=== PATIENT | male | born 1955 | race Caucasian/White ===

== ENCOUNTER 2017-03-01 20:46 | Observation (INO) | payer OTHER ==
[2017-03-01 21:31] VITALS: RESP 18; O2SAT 98
--- NOTE | 2017-03-01 21:52 | C.PDOC ---
History Of Present Illness 61 year old male BIBA for public alcohol intoxication. Patient admits to drinking today; has no physical complaints. Time Seen by Provider: 03/01/17 21:31 Chief Complaint (Nursing): Medical Clearance History Per: Patient, EMS History/Exam Limitations: intoxication Onset/Duration Of Symptoms: Hrs Current Symptoms Are (Timing): Still Present Severity: Mild Past Medical History Reviewed: Historical Data, Nursing Documentation, Vital Signs Vital Signs: Last Vital Signs Temp 97.9 F 03/02/17 06:12 Pulse 67 03/02/17 06:12 Resp 18 03/02/17 06:12 BP 95/64 L 03/02/17 06:12 Pulse Ox 98 03/02/17 06:12 Family History: States: Unknown Family Hx - Social History Hx Alcohol Use: Yes Hx Substance Use: No Review Of Systems Except As Marked, All Systems Reviewed And Found Negative. Constitutional: Positive for: Other (+Intoxication) Cardiovascular: Negative for: Chest Pain Respiratory: Negative for: Shortness of Breath Gastrointestinal: Negative for: Nausea, Vomiting, Abdominal Pain, Diarrhea Psych: Negative for: Depression, Suicidal ideation Physical Exam - Physical Exam Appears: Non-toxic, No Acute Distress, Other (+AOB, appears intoxicated ) Skin: Normal Color, Warm, Dry Head: Atraumatic, Normacephalic Eye(s): bilateral: Normal Inspection Oral Mucosa: Moist Neck: Normal, Normal ROM, No Midline Cervical Tenderness, No Paracervical Tenderness, No Step Off Deformity, Supple Cardiovascular: Rhythm Regular Respiratory: Normal Breath Sounds, No Rales, No Rhonchi, No Wheezing Gastrointestinal/Abdominal: Normal Exam, Bowel Sounds, Soft, No Tenderness Extremity: Normal ROM, No Tenderness Neurological/Psych: Other (awake, alert, intoxicated) ED Course And Treatment O2 Sat by Pulse Oximetry: 98 (Room air) Pulse Ox Interpretation: Normal Progress Note: Accucheck ordered and reviewed. Patient placed in ED observation pending sobriety. 6:15AM -Patient currently AAOx3, ambulating normally in the ED. He is clinically sober at this time, will discharge. Reevaluation Time: 02:15 Reassessment Condition: Improved (Patient resting comfortably, easily arousable , pending sobriety.) Disposition Counseled Patient/Family Regarding: Diagnosis, Need For Followup - Disposition Disposition: HOME/ ROUTINE Disposition Time: 06:15 Condition: STABLE - POA Present On Arrival: None - Clinical Impression Clinical Impression: Alcohol intoxication - Scribe Statement The provider has reviewed the documentation as recorded by the Scribe Zulema Kidd Provider Attestation: All medical record entries made by the Scribe were at my direction and personally dictated by me. I have reviewed the chart and agree that the record accurately reflects my personal performance of the history, physical exam, medical decision making, and the department course for this patient. I have also personally directed, reviewed, and agree with the discharge instructions and disposition.
[2017-03-02 06:13] VITALS: BP 95/64; PULSE 67; TEMP 97.9
== END 2017-03-02 06:12 | disposition home or self-care (01) ==
LOC: C.ER 20:46 → MERGE 22:01 → C.9OBSV 22:01
PROVIDERS: ADMIT Emergency Medicine; ATTEND Emergency Medicine
DX: F10.120 Alcohol abuse with intoxication, uncomplicated (principal); Y90.9 Presence of alcohol in blood, level not specified
CPT/HCPCS: 82948; 99282; G0378

== ENCOUNTER 2017-04-06 17:37 | Observation (INO) | payer OTHER ==
--- NOTE | 2017-04-06 17:51 | C.PDOC ---
History Of Present Illness <Manuel Goldstein - Last Filed: 04/07/17 05:17> <Isael Vincent - Last Filed: 04/07/17 12:20> 62 y/o male presents to ED via EMS after police responded to patient harassing someone outside just prior to arrival. EMS were called for public intoxication. Denies any injury, trauma, or other acute complaints on arrival. (Isael Vincent) <Manuel Goldstein - Last Filed: 04/07/17 05:17> History Per: Patient History/Exam Limitations: no limitations Onset/Duration Of Symptoms: Hrs Current Symptoms Are (Timing): Still Present Recent travel outside of the [place]: No <Isael Vincent - Last Filed: 04/07/17 12:20> Time Seen by Provider: 04/06/17 17:39 Past Medical History Reviewed: Historical Data, Nursing Documentation, Vital Signs - Medical History PMH: No Chronic Diseases Family History: States: Unknown Family Hx <Isael Vincent - Last Filed: 04/07/17 12:20> Vital Signs: Last Vital Signs Temp 97.8 F 04/07/17 05:50 Pulse 93 H 04/07/17 05:50 Resp 20 04/07/17 05:50 BP 128/69 04/07/17 05:50 Pulse Ox 98 04/07/17 05:50 Review Of Systems Except As Marked, All Systems Reviewed And Found Negative. Constitutional: Negative for: Fever Cardiovascular: Negative for: Chest Pain Respiratory: Negative for: Shortness of Breath Gastrointestinal: Negative for: Nausea, Vomiting Musculoskeletal: Negative for: Neck Pain Skin: Negative for: Rash Neurological: Negative for: Headache, Dizziness <Isael Vincent - Last Filed: 04/07/17 12:20> Physical Exam - Physical Exam Appears: Unkempt, Other (smells of alcohol ) Skin: Warm, Dry Head: Atraumatic Nose: No Epistaxis Lips: No Swelling Neck: Normal ROM Cardiovascular: Rhythm Regular Respiratory: No Accessory Muscle Use, No Rales, No Rhonchi, No Wheezing Gastrointestinal/Abdominal: Soft, No Tenderness Extremity: No Deformity Neurological/Psych: Oriented x3, Other (no focal deficits) <Isael Vincent - Last Filed: 04/07/17 12:20> ED Course And Treatment O2 Sat by Pulse Oximetry: 97 Pulse Ox Interpretation: Normal Reevaluation Time: 05:18 Reassessment Condition: Improved <Manuel Goldstein - Last Filed: 04/07/17 05:17> ED OBSERVATION Discharge: Yes <Manuel Goldstein - Last Filed: 04/07/17 05:17> Date of observation admission: 04/06/17 Time of observation admission: 17:52 <Isael Vincent - Last Filed: 04/07/17 12:20> - Observation admission statement Patient is being placed in observation because:: etoh intoxication (Isael Vincent) - Goals of Observation Goals of observation are:: sobriety (Isael Vincent) Disposition Counseled Patient/Family Regarding: Studies Performed, Diagnosis - Disposition Disposition Time: 01:00 <Manuel Goldstein - Last Filed: 04/07/17 05:17> <Isael Vincent - Last Filed: 04/07/17 12:20> - Disposition Disposition: HOME/ ROUTINE Condition: FAIR - Clinical Impression Clinical Impression: Alcohol intoxication <Manuel Goldstein - Last Filed: 04/07/17 05:17> - Scribe Statement The provider has reviewed the documentation as recorded by the Scribe <Isael Vincent - Last Filed: 04/07/17 12:20> - Scribe Statement Musa Vivas Provider Scribe Attestation: All medical record entries made by the Scribe were at my direction and personally dictated by me. I have reviewed the chart and agree that the record accurately reflects my personal performance of the history, physical exam, medical decision making, and the department course for this patient. I have also personally directed, reviewed, and agree with the discharge instructions and disposition. (Isael Vincent) Physician Patient Turnover Patient Signed Over To: Manuel Goldstein Handoff Comments: pending sobriety <Isael Vincent - Last Filed: 04/07/17 12:20>
[2017-04-07 05:51] VITALS: BP 128/69; PULSE 93; RESP 20; TEMP 97.8; O2SAT 98
== END 2017-04-07 05:18 | disposition home or self-care (01) ==
LOC: C.ER 17:37 → MERGE 18:15 → C.9OBSV 18:15 → EDBD 18:15
PROVIDERS: ADMIT Emergency Medicine; ATTEND Emergency Medicine
DX: F10.129 Alcohol abuse with intoxication, unspecified (principal)
CPT/HCPCS: 82948; 99285; G0378

== ENCOUNTER 2017-07-17 18:01 | Observation (INO) | payer OTHER ==
--- NOTE | 2017-07-17 18:43 | C.PDOC ---
History Of Present Illness 61 y/o male who was brought by EMS after being found lying on street. Patient is intoxicated. States having no complaints, and wants to leave. Appears to have no physical injuries. Time Seen by Provider: 07/17/17 18:24 Chief Complaint (Nursing): Substance Abuse History Per: Patient History/Exam Limitations: no limitations Onset/Duration Of Symptoms: Days Current Symptoms Are (Timing): Still Present Additional History Per: EMS Past Medical History Reviewed: Historical Data, Nursing Documentation, Vital Signs Vital Signs: Last Vital Signs Temp 98.2 F 07/17/17 18:07 Pulse 68 07/17/17 18:07 Resp 18 07/17/17 18:07 BP 113/67 07/17/17 18:07 Pulse Ox 93 L 07/17/17 20:41 Family History: States: Unknown Family Hx - Social History Hx Tobacco Use: (unknown) Hx Alcohol Use: Yes Hx Substance Use: No - Immunization History Hx Tetanus Toxoid Vaccination: No Hx Influenza Vaccination: No Hx Pneumococcal Vaccination: No Review Of Systems Except As Marked, All Systems Reviewed And Found Negative. Psych: Positive for: Other (Intoxication) Physical Exam - Physical Exam Appears: Well, Non-toxic, No Acute Distress Skin: Normal Color, Warm, Dry Head: Atraumatic, Normacephalic Eye(s): bilateral: Normal Inspection, PERRL, EOMI Oral Mucosa: Moist Neck: Normal ROM Chest: Symmetrical Cardiovascular: Rhythm Regular, No Murmur Respiratory: Normal Breath Sounds, No Accessory Muscle Use Gastrointestinal/Abdominal: Normal Exam, Soft, No Tenderness Back: Normal Inspection, No Vertebral Tenderness Extremity: Bilateral: Atraumatic, Normal ROM Neurological/Psych: Oriented x3, Normal Speech ED Course And Treatment O2 Sat by Pulse Oximetry: 93 (RA) Pulse Ox Interpretation: Normal Medical Decision Making Medical Decision Making: Time: 18:37 Plan: --Patient placed on ED-OBS for alcohol intoxication, pending sobriety *See ED-OBS tab for all further documentation ED OBSERVATION Date of observation admission: 07/17/17 Time of observation admission: 18:37 - Observation admission statement Patient is being placed in observation because:: Alcohol intoxication - Goals of Observation Goals of observation are:: Clinical sobriety - Progress Note Progress Note: 07/17/17 Time: 18:37 --Patient is resting. Vital signs stable. Time: 20:37 --Patient is resting. Vital signs stable. 07/17/17 23:41 Patient continues to sleep quietly. vitals stable Disposition - Disposition Disposition Time: 23:42 Condition: STABLE - Clinical Impression Clinical Impression: Alcohol intoxication - Scribe Statement The provider has reviewed the documentation as recorded by the Scribe Crystal Chanel All medical record entries made by the Scribe were at my direction and personally dictated by me. I have reviewed the chart and agree that the record accurately reflects my personal performance of the history, physical exam, medical decision making, and the department course for this patient. I have also personally directed, reviewed, and agree with the discharge instructions and disposition. Physician Patient Turnover Patient Signed Over To: Bam Pride DO Handoff Comments: pending sobriety
[2017-07-17 23:51] VITALS: RESP 20
[2017-07-18 05:16] VITALS: BP 128/72; PULSE 72; TEMP 98; O2SAT 98
== END 2017-07-18 05:07 | disposition home or self-care (01) ==
LOC: C.ER 18:01 → C.9OBSV 18:37
PROVIDERS: ADMIT Emergency Medicine; ATTEND Emergency Medicine
DX: F10.129 Alcohol abuse with intoxication, unspecified (principal)
CPT/HCPCS: 82948; G0378

== ENCOUNTER 2017-08-24 18:50 | Emergency (ER) | payer OTHER ==
[2017-08-24 20:09] LABS: BASO % 0.5 % (0.0-2.0); EOS % 0.7 % (0.0-4.0); HEMATOCRIT 37.5 % (35.0-51.0); LYMPH # 1.6 K/uL (1.0-4.3); LYMPH % 21.9 % (20.0-40.0); MEAN CELL VOLUME 85.4 fL (80.0-94.0); MEAN CORPUSCULAR HEMOGLOBIN 29.2 pg (27.0-31.0); MEAN CORPUSCULAR HGB CONC 34.2 g/dL (33.0-37.0); MEAN PLATELET VOLUME 6.8 fL (7.2-11.7); MONO # 0.8 K/uL (0.0-0.8); MONO % 10.6 % (0.0-10.0); RED CELL DISTRIBUTION WIDTH 13.4 % (11.5-14.5); WHITE BLOOD COUNT 7.4 K/uL (4.8-10.8)
[2017-08-24 20:15] LABS: CHLORIDE 95 mmol/L (98-107); POTASSIUM 3.4 mmol/L (3.6-5.2); SODIUM 136 mmol/L (132-148)
[2017-08-24 20:17] LABS: GFR AFRICAN-AMERICAN > 60
[2017-08-24 20:18] LABS: ALKALINE PHOSPHATASE 70 U/L (38-126); ALT/SGPT 25 U/L (21-72); AST/SGOT 25 U/L (17-59); BILIRUBIN,TOTAL 0.5 mg/dL (0.2-1.3); BLOOD UREA NITROGEN 11 mg/dL (9-20); CALCIUM 8.8 mg/dl (8.6-10.4); CARBON DIOXIDE 23 mmol/L (22-30); GLUCOSE,RANDOM 78 mg/dL (75-110); TOTAL PROTEIN 7.2 g/dL (6.3-8.3)
[2017-08-24 20:19] LABS: ALCOHOL SERUM 296 mg/dl (0-10)
--- NOTE | 2017-08-25 01:35 | C.PDOC ---
History Of Present Illness Patient was brought to the Ed by EMS after being found on the street with alcohol on breath. He denies physical complaints, suicidal, or homicidal ideations. Chief Complaint (Nursing): Substance Abuse History Per: Patient History/Exam Limitations: no limitations Suicide/Self Injury Attempted (Context): None Modifying Factor(s): Alcohol Severity: None Pain Scale Rating Of: 0 Associated Symptoms: denies: Suicidal Thoughts, Suicidal Plan Involuntary Hold By: None Recent travel outside of the [place]: No Past Medical History Reviewed: Historical Data, Nursing Documentation, Vital Signs Vital Signs: Last Vital Signs Temp 98.0 F 08/25/17 05:06 Pulse 66 08/25/17 05:06 Resp 18 08/25/17 05:06 BP 105/65 08/25/17 05:06 Pulse Ox 98 08/25/17 05:06 Family History: States: Unknown Family Hx - Social History Hx Alcohol Use: No (unknown) Hx Substance Use: No (unknown) Review Of Systems Constitutional: Negative for: Fever, Chills Cardiovascular: Negative for: Chest Pain, Palpitations Respiratory: Negative for: Cough, Shortness of Breath Gastrointestinal: Negative for: Vomiting, Abdominal Pain, Diarrhea Psych: Negative for: Suicidal ideation Physical Exam - Physical Exam Appears: Non-toxic, No Acute Distress Skin: Warm, Dry Head: Atraumatic, Normacephalic Eye(s): bilateral: Normal Inspection Oral Mucosa: Moist Neck: Supple Chest: Symmetrical, No Deformity Cardiovascular: Rhythm Regular, No Murmur Respiratory: Normal Breath Sounds, No Rales, No Rhonchi, No Wheezing Gastrointestinal/Abdominal: Soft, No Tenderness, No Distention, No Guarding, No Rebound Extremity: Normal ROM, No Tenderness Neurological/Psych: Oriented x3 ED Course And Treatment - Laboratory Results Result Diagrams: 08/24/17 20:00 08/24/17 20:00 O2 Sat by Pulse Oximetry: 96 (RA) ED OBSERVATION Date of observation admission: 08/24/17 Time of observation admission: 19:00 - Observation admission statement Patient is placed on observation because of need: for resolution of acute symptoms - Goals of Observation Goals of Observation: Clinical sobriety Disposition Counseled Patient/Family Regarding: Diagnosis - Disposition Referrals: [facility] [Outside] Disposition: HOME/ ROUTINE Disposition Time: 05:00 Condition: STABLE Instructions: Abuse of Alcohol (ED) Forms: [facility] (Kiswahili) - POA Present On Arrival: None - Clinical Impression Clinical Impression: Alcohol intoxication - Scribe Statement The provider has reviewed the documentation as recorded by the Scribe Emily Gibson All medical record entries made by the Scribe were at my direction and personally dictated by me. I have reviewed the chart and agree that the record accurately reflects my personal performance of the history, physical exam, medical decision making, and the department course for this patient. I have also personally directed, reviewed, and agree with the discharge instructions and disposition.
[2017-08-25 02:15] VITALS: TEMP 98
[2017-08-25 05:06] VITALS: BP 105/65; PULSE 66; RESP 18
[2017-08-25 05:09] VITALS: O2SAT 96
== END 2017-08-25 05:26 | disposition home or self-care (01) ==
LOC: EDBD 18:50 → C.ER 18:50
DX: F10.129 Alcohol abuse with intoxication, unspecified (principal); Y90.8 Blood alcohol level of 240 mg/100 ml or more

== ENCOUNTER 2017-08-31 15:58 | Emergency (ER) | payer OTHER ==
[2017-08-31 16:43] VITALS: TEMP 98.1
--- NOTE | 2017-08-31 18:32 | C.PDOC ---
History Of Present Illness 61 year old male presents to the ED via BLS for evaluation of public alcohol intoxication for an unknown duration. Patient is familiar to this ED and has been previously evaluated for alcohol intoxication. Patient admits to drinking earlier today. He denies suicidal/homicidal ideation and is showing no signs of injury. Time Seen by Provider: 08/31/17 17:40 Chief Complaint (Nursing): Substance Abuse History Per: Patient, EMS History/Exam Limitations: intoxication Onset/Duration Of Symptoms: Unknown Current Symptoms Are (Timing): Still Present Suicide/Self Injury Attempted (Context): None Modifying Factor(s): Alcohol Associated Symptoms: denies: Suicidal Thoughts, Suicidal Plan Involuntary Hold By: None Recent travel outside of the [place]: No Additional History Per: Patient Past Medical History Reviewed: Historical Data, Nursing Documentation, Vital Signs Vital Signs: Last Vital Signs Temp 98.1 F 08/31/17 16:40 Pulse 64 08/31/17 21:23 Resp 18 08/31/17 21:23 BP 93/56 L 08/31/17 21:23 Pulse Ox 99 08/31/17 22:47 - Medical History PMH: No Chronic Diseases Surgical History: No Surg Hx Family History: States: Unknown Family Hx - Social History Hx Tobacco Use: (unknown) Hx Alcohol Use: Yes Hx Substance Use: No - Immunization History Hx Tetanus Toxoid Vaccination: No Hx Influenza Vaccination: No Hx Pneumococcal Vaccination: No Review Of Systems Psych: Positive for: Other (EtOH intoxication ). Negative for: Suicidal ideation Physical Exam - Physical Exam Appears: Non-toxic, No Acute Distress, Other (visibly intoxicated) Skin: Normal Color, Warm, Dry Head: Atraumatic, Normacephalic Eye(s): bilateral: Normal Inspection Oral Mucosa: Moist, Other (alcohol on breath ) Neck: Supple Chest: Symmetrical, No Deformity, No Tenderness Cardiovascular: Rhythm Regular, No Murmur Respiratory: Normal Breath Sounds, No Rales, No Rhonchi, No Wheezing Extremity: Normal ROM, Capillary Refill (less than 2 seconds ) Neurological/Psych: Other (arousable to touch and verbal stimuli ) Gait: Unsteady ED Course And Treatment O2 Sat by Pulse Oximetry: 99 Medical Decision Making Medical Decision Making: Patient is awake, alert, and ambulatory, admits to ETOH use, has no complaints at this time. Will d/c. Disposition Counseled Patient/Family Regarding: Diagnosis, Need For Followup - Disposition Disposition: HOME/ ROUTINE Disposition Time: 22:33 Condition: IMPROVED Additional Instructions: decrease alcohol use follow up with medical clinic in 2 days return to hospital if symptoms worsens or progress Instructions: Alcohol Intoxication (ED) Forms: [facility] (Israeli), Gen Discharge Inst Kinyarwanda - Clinical Impression Clinical Impression: Alcohol intoxication - Scribe Statement The provider has reviewed the documentation as recorded by the Scribe (Mirella Kidd) Provider Attestation: All medical record entries made by the Scribe were at my direction and personally dictated by me. I have reviewed the chart and agree that the record accurately reflects my personal performance of the history, physical exam, medical decision making, and the department course for this patient. I have also personally directed, reviewed, and agree with the discharge instructions and disposition.
[2017-08-31 21:24] VITALS: BP 93/56; PULSE 64; RESP 18
[2017-08-31 22:34] VITALS: O2SAT 99
== END 2017-08-31 22:38 | disposition home or self-care (01) ==
LOC: C.ER 15:58
DX: F10.129 Alcohol abuse with intoxication, unspecified (principal); Y90.9 Presence of alcohol in blood, level not specified

== ENCOUNTER 2017-09-09 18:45 | Emergency (ER) | payer OTHER ==
--- NOTE | 2017-09-09 19:58 | C.PDOC ---
History Of Present Illness 61 year old male is brought to the ED by EMS for evaluation of public alcohol intoxication for an unknown duration. Patient has history of homelessness and was found around [facility] prior to arrival. Patient admits to drinking earlier today and has no physical complaints or signs of injury at this time. Time Seen by Provider: 09/09/17 19:46 Chief Complaint (Nursing): Substance Abuse History Per: Patient, EMS History/Exam Limitations: intoxication Onset/Duration Of Symptoms: Unknown Current Symptoms Are (Timing): Still Present Suicide/Self Injury Attempted (Context): None Modifying Factor(s): Alcohol Involuntary Hold By: None Recent travel outside of the [place]: No Additional History Per: Patient, EMS Past Medical History Reviewed: Historical Data, Nursing Documentation, Vital Signs Vital Signs: Last Vital Signs Temp 97.6 F 09/10/17 04:31 Pulse 77 09/10/17 04:31 Resp 18 09/10/17 04:31 BP 116/68 09/10/17 04:31 Pulse Ox 98 09/10/17 04:31 - Medical History PMH: No Chronic Diseases Surgical History: No Surg Hx Family History: States: Unknown Family Hx - Social History Hx Tobacco Use: (unknown) Hx Alcohol Use: Yes Hx Substance Use: No - Immunization History Hx Tetanus Toxoid Vaccination: No Hx Influenza Vaccination: No Hx Pneumococcal Vaccination: No Review Of Systems Psych: Positive for: Other (EtOH intoxication ) Physical Exam - Physical Exam Appears: No Acute Distress, Other (visibly intoxicated, noncompliant with examination ) Skin: Normal Color, Warm, Dry Eye(s): bilateral: Normal Inspection Oral Mucosa: Moist, Other (alcohol on breath ) Neck: Supple Chest: Symmetrical Cardiovascular: Rhythm Regular Respiratory: Normal Breath Sounds Extremity: Normal ROM, Capillary Refill (less than 2 seconds ) Neurological/Psych: Other (sleeping, but arousable to touch and verbal stimuli ) Gait: Unsteady ED Course And Treatment O2 Sat by Pulse Oximetry: 98 (on RA) Pulse Ox Interpretation: Normal Progress - Re-Evaluation Re-evaluation Note: 09/10/17 05:31 CLEAR SPEECH AND THOUGHT STEADY GAIT NO S/S ACUTE INTOX - Data Reviewed Data Reviewed: Old records Disposition Counseled Patient/Family Regarding: Diagnosis - Disposition Disposition: HOME/ ROUTINE Disposition Time: 05:35 Condition: IMPROVED Forms: [facility] (Luxembourgish) - Clinical Impression Clinical Impression: Alcohol intoxication - Scribe Statement The provider has reviewed the documentation as recorded by the Scribe (Mirella Kidd) Provider Attestation: All medical record entries made by the Scribe were at my direction and personally dictated by me. I have reviewed the chart and agree that the record accurately reflects my personal performance of the history, physical exam, medical decision making, and the department course for this patient. I have also personally directed, reviewed, and agree with the discharge instructions and disposition.
[2017-09-10 04:35] VITALS: BP 116/68; PULSE 77; RESP 18; TEMP 97.6; O2SAT 98
== END 2017-09-10 05:30 | disposition home or self-care (01) ==
LOC: C.ER 18:45
DX: F10.129 Alcohol abuse with intoxication, unspecified (principal)

== ENCOUNTER 2018-07-13 17:50 | Emergency (ER) | payer SELFPAY ==
[2018-07-13 17:58] VITALS: TEMP 98.7
--- NOTE | 2018-07-13 18:05 | C.PDOC ---
History Of Present Illness 62 year old male brought in via EMS after he was found outside taking a nap on the street. Patient admits to drinking ETOH. Denies any complaints. Time Seen by Provider: 07/13/18 17:55 Chief Complaint (Nursing): Substance Abuse History Per: Patient History/Exam Limitations: no limitations Onset/Duration Of Symptoms: Hrs Current Symptoms Are (Timing): Still Present Suicide/Self Injury Attempted (Context): None Modifying Factor(s): Alcohol Associated Symptoms: denies: Depression, Suicidal Thoughts Involuntary Hold By: None Recent travel outside of the [place]: No Past Medical History Reviewed: Historical Data, Nursing Documentation, Vital Signs Vital Signs: Last Vital Signs Temp 98.7 F 07/13/18 18:03 Pulse 66 07/13/18 18:03 Resp 20 07/13/18 18:03 BP 101/64 07/13/18 18:03 Pulse Ox 96 07/13/18 18:09 Family History: States: Unknown Family Hx - Social History Hx Tobacco Use: (unknown) Hx Alcohol Use: Yes Hx Substance Use: No - Immunization History Hx Tetanus Toxoid Vaccination: No Hx Influenza Vaccination: No Hx Pneumococcal Vaccination: No Review Of Systems Constitutional: Positive for: Other (ETOH intoxication). Negative for: Fever, Chills Cardiovascular: Negative for: Chest Pain, Palpitations Respiratory: Negative for: Cough Gastrointestinal: Negative for: Nausea, Vomiting Physical Exam - Physical Exam Appears: Non-toxic, Other (ETOH on breath, no sign of injury) Skin: Normal Color, Warm, Dry Head: Atraumatic, Normacephalic Eye(s): bilateral: Normal Inspection Oral Mucosa: Moist Chest: Symmetrical, No Tenderness Cardiovascular: Rhythm Regular Respiratory: Normal Breath Sounds, No Rales, No Rhonchi, No Wheezing Gastrointestinal/Abdominal: Soft, No Tenderness Neurological/Psych: Oriented x3, Normal Speech ED Course And Treatment O2 Sat by Pulse Oximetry: 96 Medical Decision Making Medical Decision Making: Assessment: ETOH intoxication - reevaluation -patient ambulatory with steady gait will discharge home to follow up with medical clinic within 2 days Disposition - Disposition Referrals: [facility] [Outside] Disposition: HOME/ ROUTINE Disposition Time: 00:01 Condition: STABLE Additional Instructions: follow up with medical clinic within 2 days call to make an appointment decrease alcohol use return to ER if symptoms worsens or progress Instructions: Alcohol Use - When Is Drinking a Problem? Forms: [facility] (Chadian), General Discharge Instructions - Clinical Impression Clinical Impression: Alcohol intoxication - Scribe Statement The provider has reviewed the documentation as recorded by the Scribmauro Chang All medical record entries made by the Scribe were at my direction and personally dictated by me. I have reviewed the chart and agree that the record accurately reflects my personal performance of the history, physical exam, medical decision making, and the department course for this patient. I have also personally directed, reviewed, and agree with the discharge instructions and disposition.
[2018-07-14 00:10] VITALS: BP 115/64; PULSE 76; RESP 16; O2SAT 99
== END 2018-07-14 00:12 | disposition home or self-care (01) ==
LOC: C.ER 17:50
DX: F10.129 Alcohol abuse with intoxication, unspecified (principal); Y90.9 Presence of alcohol in blood, level not specified